=== PATIENT | female | born 1990 | race American Indian/Alaskan Native ===

== ENCOUNTER 2017-01-28 08:10 | Emergency (ER) | payer MEDICAID, OTHER ==
[2017-01-28 08:35] LABS: Urine Drugs of Abuse Note Disclamer
[2017-01-28 08:56] LABS: Bacteria,Urine 1+ /HPF (Negative); Bilirubin,Urine NEG (Negative); Blood,Urine NEG (Negative); Ketones,Urine 80 mg/dL (Negative); Leukocyte Esterase,Urine TR (Negative); Mucus,Urine 3+ /HPF; Nitrite,Urine NEG (Negative)
[2017-01-28] MEDS ORDERED: ZOFRAN ONE ×2 (09:08→14:03)
[2017-01-28] MEDS ORDERED: SUBLIMAZE ONE (09:09)
[2017-01-28] MEDS ORDERED: NACL 0.9% 1000 ML 1,000 ML ONE (09:09)
[2017-01-28 09:11] LABS: Anion Gap 24 mmol/L; BUN/Creatinine Ratio 30; Blood Urea Nitrogen 12 mg/dL (7-17); Calcium 9.3 mg/dL (8.4-10.2); Carbon Dioxide 20 mmol/L (22-30); Chloride 94.2 mmol/L (98-107); Glucose 99 mg/dL (65-100); Potassium 3.4 mmol/L (3.6-5.0); Sodium 135 mmol/L (137-145)
[2017-01-28 09:14] LABS: Hematocrit 43.4 % (30.3-42.9); Hemoglobin 14.8 gm/dl (10.1-14.3); Mean Corpuscular HGB Conc 34 % (30-34); Mean Corpuscular Hemoglobin 30 pg (28-32); Mean Corpuscular Volume 89 fl (79-97); Platelet Count 307 K/mm3 (140-440); Red Blood Count 4.88 M/mm3 (3.65-5.03); Red Cell Distribution Width 20.4 % (13.2-15.2); White Blood Count 8.7 K/mm3 (4.5-11.0)
[2017-01-28 09:15] LABS: Basophils % (Auto) 1.2 % (0.0-1.8); Eosinophils % (Auto) 1.4 % (0.0-4.3)
[2017-01-28 09:16] LABS: Diff Status Complete
[2017-01-28] MEDS ORDERED: NACL 0.9% 1000 ML 1,000 ML IV ONE (09:32)
[2017-01-28] MEDS ORDERED: ZOFRAN IV ONE ×2 (09:33→14:25)
[2017-01-28] MEDS ORDERED: SUBLIMAZE IV ONE (09:33)
[2017-01-28] MEDS ORDERED: MORPHINE IV ONE (10:41)
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
[2017-01-28] MEDS ORDERED: PEPCID IV ONE (12:18)
[2017-01-28] MEDS ORDERED: NORCO 10/325 PO ONE (13:23)
--- NOTE | 2017-01-28 13:34 | Ultrasound Report ---
FINAL REPORT EXAM: US OB TRANSVAGINAL HISTORY: and abd pain patient tried to overdose TECHNIQUE: Transabdominal and transvaginal OB ultrasound. PRIORS: None currently available. FINDINGS: Single intrauterine dates 6.2 weeks by crown rump length. PAMELA equals September 21, 2017. [place]-rump length measures 5.5 mm. Gestational sac, yolk sac, and pole identified. Yolk sac as lie slightly irregular shape. No subchorionic bleed. heart rate: 121 BPM. Uterus: 8.4 x 6.4 x 5.7 cm. No distinct lesions. Cervix is closed. Right ovary: 3.0 x 1.9 x 2.7 cm. Small cyst measures 9 mm. Left Ovary: Not visualized. Adnexal: Unremarkable. No free fluid. IMPRESSION: Single live intrauterine . Suspect corpus luteal cysts of the right ovary. Left ovaries not visualized.
--- NOTE | 2017-01-28 13:34 | Ultrasound Report ---
FINAL REPORT EXAM: US OB < = 14 WEEKS FETUS HISTORY: TECHNIQUE: Transabdominal and transvaginal OB ultrasound. PRIORS: None currently available. FINDINGS: Single intrauterine dates 6.2 weeks by crown rump length. PAMELA equals September 21, 2017. [place]-rump length measures 5.5 mm. Gestational sac, yolk sac, and pole identified. Yolk sac as lie slightly irregular shape. No subchorionic bleed. heart rate: 121 BPM. Uterus: 8.4 x 6.4 x 5.7 cm. No distinct lesions. Cervix is closed. Right ovary: 3.0 x 1.9 x 2.7 cm. Small cyst measures 9 mm. Left Ovary: Not visualized. Adnexal: Unremarkable. No free fluid. IMPRESSION: Single live intrauterine . Suspect corpus luteal cysts of the right ovary. Left ovaries not visualized.
[2017-01-28] MEDS ORDERED: REGLAN PO ONE (22:48)
--- NOTE | 2017-01-29 07:34 | Ultrasound Report ---
FINAL REPORT EXAM: US OB TRANSVAGINAL HISTORY: spontanous bleeding elevated HCG levels TECHNIQUE: Transvaginal imaging was obtained the pelvis along with Doppler interrogation of the adnexa and fetus. FINDINGS: The uterus is anteverted measuring 8.5 cm x 5.1 cm x 6.2 cm. Within the uterus is a gestational sac containing an embryo and yolk sac. The estimated ultrasound age of the embryo is 6 weeks 3 days based on crown-rump length. The heart rate is 129 BPM. The gestational sac is normal in configuration. There is a very small subchorionic hemorrhage. Free fluid is not seen. The maternal right ovary measures 2.9 cm x 1.7 cm x 2 cm. There are 2 small follicles in the right ovary. The maternal left ovary measures 2.5 cm x 1.4 cm x 1.4 cm. IMPRESSION: Single viable IUP of 6 weeks 3 days. heart rate 129 BPM. Small subchorionic hemorrhage noted.
--- NOTE | 2017-01-29 07:40 | Ultrasound Report ---
FINAL REPORT PROCEDURE: US OB < = 14 WEEKS FETUS TECHNIQUE: Transabdominal ultrasound of the gravid pelvis was performed. HISTORY: spontanous bleeding elevated HCG levels COMPARISON: Ultrasound Ob transvaginal 01/28/2017 FINDINGS: The uterus measures 8.5 x 5.1 x 6.2 centimeters. There is a single live intrauterine gestation by crown-rump length 6 weeks 3 days age. heart rate 129 beats per minute was noted. Subchorionic hemorrhage 1.1 x 0.6 centimeters is present. The left ovary measures 2.5 x 1.4 x 1.4 centimeters while the right ovary measures 2.9 x 1.7 x 2.0 centimeters. Two sub centimeter follicles are present of the right ovary. IMPRESSION: Single live intrauterine gestation at approximately 6 weeks 3 days. EDC by US 09/21/2017. 1.1 x 0.6 centimeter subchorionic hemorrhage. Close follow-up is recommended.
[2017-01-29 09:49] LABS: Basophils % (Auto) 0.7 % (0.0-1.8); Eosinophils % (Auto) 0.9 % (0.0-4.3); Hematocrit 40.1 % (30.3-42.9); Hemoglobin 13.8 gm/dl (10.1-14.3); Mean Corpuscular HGB Conc 34 % (30-34); Mean Corpuscular Hemoglobin 31 pg (28-32); Mean Corpuscular Volume 89 fl (79-97); Platelet Count 289 K/mm3 (140-440); Red Cell Distribution Width 19.8 % (13.2-15.2); White Blood Count 7.7 K/mm3 (4.5-11.0)
[2017-01-29 10:03] LABS: Anion Gap 18 mmol/L; BUN/Creatinine Ratio 20; Blood Urea Nitrogen 10 mg/dL (7-17); Calcium 9.2 mg/dL (8.4-10.2); Carbon Dioxide 23 mmol/L (22-30); Chloride 92.9 mmol/L (98-107); Glucose 98 mg/dL (65-100); Potassium 3.3 mmol/L (3.6-5.0); Sodium 131 mmol/L (137-145)
[2017-01-29 10:19] VITALS: BP 120/80
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
[2017-01-29] MEDS ORDERED: ZOFRAN IV ONE (14:56)
[2017-01-29] MEDS ORDERED: NACL 0.9% 1000 ML 1,000 ML IV ONE (14:56)
[2017-01-29] MEDS ORDERED: PEPCID IV ONE (14:56)
[2017-01-29] MEDS ORDERED: D5/0.45NS 1,000 ML IV SCH (15:00)
--- NOTE | 2017-01-29 15:10 | Emergency Department Report ---
Jackie Doc - Documentation Documentation: This is a patient that is on a 1013 hold. She is brought to my attention by nursing staff because she is continuing to complain. I went to see her and found her with an emesis basin at the bedside. She makes claim that she was hospitalized here for 3 months for achalasia surgery. Indeed she does have a surgical scar. She states that was in 2013. I see no records to validate this here. She was admitted to another hospital. She has a long midline celiotomy scar. This may indeed be for achalasia surgery. She does not have a median sternotomy. She is not complaining of abdominal pain at all. She is denying taking an overdose now. Because of her continued complaints I repeated her aspirin level and additional blood work. She was found to be hyponatremic. Review of the patient's vital signs indicate that she has been stable She appears mildly volume depleted on exam. Again she does have emesis in a trash can at her bedside HEENT sclera is clear otherwise unremarkable Neck supple Chest clear to auscultation Cardiac S1 and S2 regular rate without murmur Abdomen soft and scaphoid planar celiotomy scar intact completely nontender to examination not distended no guarding no rebound Musculoskeletal without deformity Neurological intact Review of imaging and laboratory data Patient is hyponatremic now. She was substantially completed before. She's had 2 ultrasounds which showed a 6 and half week intrauterine but nothing else. Assessment Presentation appears consistent with hyperemesis gravidarum Plan Patient requires additional IV fluid. She will be given 1 L of normal saline followed by a liter of D5 half normal saline. Additional blood work is pending. We may reevaluate this patient tomorrow. If she has not adequately cleared she may require OB admission.
[2017-01-29] MEDS ORDERED: BENADRYL ONE (16:01)
[2017-01-29] MEDS ORDERED: BENADRYL IV ONE (16:09)
[2017-01-29 16:23] LABS: INR 1.03 (0.87-1.13)
[2017-01-29 16:24] LABS: Partial Thromboplastin Time 29.2 Sec. (24.2-36.6)
[2017-01-29 16:32] LABS: Alanine Aminotransferase 10 units/L (7-56); Albumin 4.5 g/dL (3.9-5); Albumin/Globulin Ratio 1.7 %; Alkaline Phosphatase 69 units/L (35-129); Creatine Kinase 26 units/L (30-135); Lipase 20 units/L (13-60); Total Protein 7.2 g/dL (6.3-8.2)
[2017-01-29 16:35] LABS: Bilirubin,Direct < 0.2 mg/dL (0-0.2); Creatine Kinase MB < 1.0 ng/mL (0.0-4.0)
--- NOTE | 2017-01-29 20:27 | Event Note ---
Date: 01/29/17 Patient has had 1013 are descended patient has no suicidal or homicidal ideation checked patient's repeat blood work patient does not have hyperemesis gravidarum she has clear directed goal behavior I will send patient home with follow-up with [facility] and [place] [facility]. Patient agrees with plan.
== END 2017-01-29 22:22 ==
LOC: ED 08:10 → EEVIPCON 08:10 → ED 01-29 22:22
DX: O9A.211 Injury, poisoning and certain other consequences of external causes complicating pregnancy, first trimester (principal); O99.341 Other mental disorders complicating pregnancy, first trimester; T39.092A Poisoning by salicylates, intentional self-harm, initial encounter; O99.321 Drug use complicating pregnancy, first trimester; Z3A.01 Less than 8 weeks gestation of pregnancy; Y92.89 Other specified places as the place of occurrence of the external cause
CPT/HCPCS: 36415; 76801; 76817; 80048; 80074; 80307; 81001; 82140; 82550; 82553; 83690; 83735; 84702; 85025; 85610; 85730; 93005; 93010; 96361; 96374; 96375; 96376; 99285; G0480; J1200; J2270; J2405; J3010; J7030; 80320